=== PATIENT | female | born 1995 | race African-American/Black ===

== ENCOUNTER 2019-11-29 12:00 | Emergency (ER) | payer MEDICARE, MEDICAID ==
[~2019-11-29] VITALS: Ht 175.3 cm; Wt 122.5 kg
[2019-11-29 12:12] VITALS: BP 106/70
== END 2019-11-29 12:47 | disposition home or self-care (01) ==
LOC: EDBD 12:00 → ER 12:00
DX: R55 Syncope and collapse (principal); R51 Headache; F41.9 Anxiety disorder, unspecified; F32.9 Major depressive disorder, single episode, unspecified; F12.10 Cannabis abuse, uncomplicated